=== PATIENT | female | born 1975 | race African-American/Black ===

== ENCOUNTER → 2022-02-08 | Outpatient (CLI) | payer BC ==
--- NOTE | 2022-02-08 12:08 | Diagnostic Imaging Report ---
EXAMINATION: CT abdomen and pelvis with intravenous contrast. TECHNIQUE: Multiple contiguous axial images were obtained through the abdomen and pelvis after the uneventful administration of intravenous contrast. All CT scans use one or more of the following dose optimizing techniques: automated exposure control, MA and/or KvP adjustment based on patient size and exam type or iterative reconstruction. HISTORY: Benign neoplasm of colon. COMPARISON: None available. FINDINGS: Limited views of the lower thorax are unremarkable. There is a 1.1 cm hyperenhancing lesion in segment six. There is no biliary ductal dilation. Gallbladder is normal. Pancreas is normal. Spleen is normal. Adrenal glands are normal. The kidneys are normal. There is no hydronephrosis. Urinary bladder is normal. Colon has been removed. 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 No free fluid or air. No abdominal or pelvic lymphadenopathy. Aorta is normal in caliber without aneurysm. There are no suspicious osseus lesions. IMPRESSION: 1. Indeterminate hyperenhancing segment six liver lesion is likely a flash filling hemangioma. Comparison with more remote priors could establish benignity, otherwise, liver protocol MRI recommended. Dictated by: Dictated on workstation # [id number]
== END ==
LOC: RAD 11:15
DX: D12.6 Benign neoplasm of colon, unspecified (principal)
CPT/HCPCS: 74177